=== PATIENT | male | born 1985 | race Caucasian/White ===

== ENCOUNTER 2020-01-17 09:48 | Emergency (ER) | payer OTHER ==
[2020-01-17] MEDS ORDERED: Sodium Chloride 0.9% 1000 ML 1,000 ML IV SCH (10:00)
[2020-01-17 10:15] LABS: Lactic Acid 3.4 (0.4-2.0); VBG CARBOXYHEMOGLOBIN 4.7 % T HGB (0.0-6.9); VBG HCO3- 27.1 meq/L (22-28); VBG HEMOGLOBIN 7.6; VBG O2 SATURATION 63.9 (95-100); VBG POTASSIUM 3.6 (3.5-5.1); VBG pH 7.45 (7.32-7.42)
[2020-01-17] MEDS ORDERED: Sodium Chloride 0.9% 1000 ML 2,000 ML ONE (10:19)
--- NOTE | 2020-01-17 10:28 | XRAY ---
Indication: Found unresponsive. History of squamous cell carcinoma. Comparison: None Portable chest demonstrates multiple monitoring leads and right Port-A-Cath. Lungs hyperinflated with multiple metastatic nodules, greatest right lower lobe. No consolidation/large effusion. Heart is not enlarged. Bony thorax intact. Impression: Metastatic nodules.
[2020-01-17 10:29] LABS: Hematocrit 22.9 % (42-50); Hemoglobin 7.6 gm/dl (12.5-18.0); INR 2.37 (0.8-3.0); Mean Cell Volume 95.8 fl (78-100); Mean Corpuscular Hemoglobin 31.8 pg (26-32); Mean Corpuscular Hgb Concent. 33.2 g/dl (32-36); Mean Platelet Volume 10.7 fl (7.5-11.0); PROTIME 27.2 SECONDS (8.83-12.87); Platelet Count 236 K/mm3 (150-450); Red Blood Count 2.39 M/mm3 (4.1-5.6); Red Cell Distribution Width 15.9 % (11.5-14.0)
[2020-01-17 10:44] LABS: White Blood Count 0.1 K/mm3 (4.0-10.5)
[2020-01-17 10:47] LABS: ALBUMIN 2.3 g/dL (3.5-5.0); ALKALINE PHOSPHATASE 198 U/L (38-126); AMYLASE 56 U/L (30-110); ANION GAP 11.5 MEQ/L (5-15); BLOOD UREA NITROGEN 67 mg/dL (9-20); CHLORIDE 98 mmol/L (98-107); CK-Creatinine Phosphokinase 139 U/L (55-170); Calcium 7.5 mg/dL (8.4-10.2); Carbon Dioxide 27 mmol/L (22-30); LIPASE 41 U/L (23-300); MAGNESIUM 2.2 mg/dL (1.6-2.3); Potassium 3.6 mmol/L (3.5-5.1); SGOT/AST 63 U/L (17-59); SGPT/ALT 177 U/L (0-50); SODIUM 133 mmol/L (137-145)
[2020-01-17 10:48] LABS: ETHYL ALCOHOL < 10 mg/dL (0-10); Glucose 34 mg/dL (74-106); TROPONIN < 0.012 ng/mL (0.000-0.034)
[2020-01-17] MEDS ORDERED: D50W 50 ml Abboject IV ONE ×2 (10:49→10:53)
[2020-01-17 10:58] VITALS: O2SAT 87
--- NOTE | 2020-01-17 10:58 | XRAY ---
Indication: Acute mental status change. History mouth and throat cancer. Multiple contiguous axial images obtained through the head without contrast. Comparison: None Ventriculosulcal pattern appears symmetric. No acute intracranial hemorrhage, abnormal extra-axial fluid collection, or mass effect. Fourth ventricle is midline without hydrocephalus. Bony calvarium intact. Visualized paranasal sinuses and mastoid air cells are clear. Impression: Negative CT head without contrast exam. MRI with contrast exam may yield further information regarding metastasis.
[2020-01-17] MEDS ORDERED: Dextrose 5%-NS IV Solution 1000 ML 1,000 ML IV SCH (11:00)
--- NOTE | 2020-01-17 11:14 | ERPHSYRPT ---
- History of Present Illness Time Seen by Provider: 01/17/20 09:55 Patient Subjective Stated Complaint: unresponsive Triage Nursing Assessment: Patient brought into ED via EMS and transferred to bed with assist of 3. Patient able to open eyes, but mumbles words due to dx of mouth and tongue cancer. Patient was found unresponsive in his cell around 0845 with pupils fixed. Accu check read low per [facility] Nurse. Patient was being transferred per [facility] to [facility] and diverted to [facility] ER due to of 60/30. Patient's skin cool, dusky and mottled. Patient able to open eyes and look around. Patient's lungs clear a/p adrian. No edema noted. Heart tones audible. Port accessed to right upper chest per [facility] Nursing staff. BS upon arrival 84. 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 He was found unresponsive with a blood sugar of 25. Staff from the custodial reports that he has a PEG tube for feeding Jevity which she does not take he was given D50 brought his blood sugar up into the 80s ambulance was called they administered further D50 during his transfer he dropped his blood pressure into the 60s and they diverted to [place] ER. We have hydrated we have repeated his D50 and we started him on 5W in addition to his other fluids at 200 an hour. Full abnormalities including multiple mats in the chest CT scan of the head is negative he is anemic he is leukopenic both metabolic abnormalities. Timing/Duration: today Allergies/Adverse Reactions: No Known Drug Allergies Allergy (Unverified 01/17/20 10:29) Home Medications: Bupropion HCl [Wellbutrin Sr] 1 tab PO BID 01/17/20 [History] Lactose-Reduced Food [Boost] 1 bottle PEG TID 01/17/20 [History] Lactose-Reduced Food/Fiber [Jevity 1.5 Akil Liquid] 1 bottle PEG TID 01/17/20 [ History] Morphine Sulfate 1 tab PO Q6H PRN PRN 01/17/20 [History] Morphine Sulfate Cr 30 mg [Ms Contin 30 mg] 1 tab PO BID 01/17/20 [History ] Morphine Sulfate Cr 60 mg [Ms Contin 60 mg] 1 tab PO BID 01/17/20 [History ] Prochlorperazine Maleate [Compazine] 1 tablet PO TIDPRN 01/17/20 [History] Hx Tetanus, Diphtheria Vaccination/Date Given: (unknown) Hx Influenza Vaccination/Date Given: (unknown) Hx Pneumococcal Vaccination/Date Given: (unknown) Immunizations Up to Date: (unknown) Travel Risk - International Travel Have you traveled outside of the country in past 3 weeks: No - Coronavirus Screening Are you exhibiting any of the following symptoms?: No Close contact with a COVID-19 positive Pt in past 14-21 Days: No - Review of Systems All Other Systems: Unable due to condition - Past Medical History Pertinent Past Medical History: Yes Neurological History: No Pertinent History ENT History: No Pertinent History Cardiac History: No Pertinent History Respiratory History: No Pertinent History Endocrine Medical History: No Pertinent History Musculoskeletal History: No Pertinent History GI Medical History: GERD History: No Pertinent History Psycho-Social History: No Pertinent History Male Reproductive Disorders: No Pertinent History Other Medical History: Squamous cell carcinoma of throat and tongue - Past Surgical History Past Surgical History: Yes Neuro Surgical History: No Pertinent History Cardiac: No Pertinent History Respiratory: No Pertinent History Gastrointestinal: Other Genitourinary: No Pertinent History Musculoskeletal: No Pertinent History Male Surgical History: No Pertinent History Other Surgical History: Peg tube placed - Social History Smoking Status: Unknown if ever smoked Exposure to second hand smoke: (unknown) Drug Use: none Patient Lives Alone: No ([facility]) - Nursing Vital Signs Nursing Vital Signs: Initial Vital Signs Temperature 95.7 F 01/17/20 09:55 Pulse Rate 105 H 01/17/20 09:55 Respiratory Rate 22 01/17/20 09:55 Blood Pressure 84/65 01/17/20 09:55 O2 Sat by Pulse Oximetry 88 L 01/17/20 09:55 Pain Scale Pain Intensity 0 - Physical Exam General Appearance: severe distress, cachetic, thin Eye Exam: PERRL/EOMI, eyes nml inspection Ears, Nose, Throat Exam: normal ENT inspection Neck Exam: normal inspection, non-tender, supple, full range of motion Respiratory Exam: diminished breath sounds, accessory muscle use, crackles/rales , rhonchi Cardiovascular Exam: tachycardia Gastrointestinal/Abdomen Exam: other (PEG tube) Male Genitalia Exam: normal genitalia Back Exam: normal inspection Extremity Exam: other (Obvious muscle wasting) Neurologic Exam: agitation, other (Is and moves all extremities) Skin Exam: warm, dry Lymphatic Exam: adenopathy SpO2 Interpretation: normal SpO2: 87 O2 Delivery: Non-rebreather - Course Nursing assessment & vital signs reviewed: Yes EKG Interpreted by Me: RATE ([id number]), NORMAL AXIS, NORMAL INTERVALS, Non-specific ST Changes Ordered Tests: Active Orders 24 hr Category Date Time Status Accucheck STAT Care 01/17/20 09:50 Active Foreign Exchange Student Coordinator STAT Care 01/17/20 09:51 Active EKG-ER Only STAT Care 01/17/20 09:50 Active IV Insertion STAT Care 01/17/20 09:50 Active IV Insertion-2nd Peripheral STAT Care 01/17/20 09:50 Active Pulse Oximetry (ED) STAT Care 01/17/20 09:50 Active CHEST 1 VIEW (PORTABLE) Stat Exams 01/17/20 09:52 Completed HEAD WITHOUT CONTRAST [CT] Stat Exams 01/17/20 10:04 Completed AMYLASE Routine Lab 01/17/20 10:10 Completed BLOOD CULTURE Stat Lab 01/17/20 09:15 Received CBC W DIFF Stat Lab 01/17/20 10:10 Completed CK-Creatinine Phosphokinase Routine Lab 01/17/20 10:10 Completed CMP Routine Lab 01/17/20 10:10 Completed ETHYL ALCOHOL Routine Lab 01/17/20 10:10 Completed LIPASE Routine Lab 01/17/20 10:10 Completed Lactic Acid Urgent Lab 01/17/20 10:10 Completed MAGNESIUM Routine Lab 01/17/20 10:10 Completed Manual Differential NC Stat Lab 01/17/20 10:10 Completed PROTIME WITH INR Stat Lab 01/17/20 10:10 Completed TROPONIN Q3H Lab 01/17/20 10:10 Completed TROPONIN Q3H Lab 01/17/20 13:00 Ordered TROPONIN Q3H Lab 01/17/20 16:00 Ordered TROPONIN Q3H Lab 01/17/20 19:00 Ordered TROPONIN Q3H Lab 01/17/20 22:00 Ordered UA W/RFX UR CULTURE Stat Lab 01/17/20 10:37 Ordered Urine Triage Profile Stat Lab 01/17/20 10:37 Ordered VENOUS BLOOD GAS Urgent Lab 01/17/20 10:10 Completed Medication Summary Generic Name Dose Route Start Last Admin Trade Name Freq PRN Reason Stop Dose Admin Sodium Chloride 1,000 mls @ 100 mls/hr 01/17/20 10:00 01/17/20 10:19 Sodium Chloride 0.9% 1000 Ml IV 02/16/20 09:59 100 mls/hr .Q10H DONTA Administration Dextrose/Sodium Chloride 1,000 mls @ 200 mls/hr 01/17/20 11:00 Dextrose 5%-Ns Iv Solution 1000 Ml IV 02/16/20 10:59 .Q5H DONTA Discontinued Medications Generic Name Dose Route Start Last Admin Trade Name Young PRN Reason Stop Dose Admin Dextrose Confirm 01/17/20 10:49 D50w 50 Ml Abboject Administered 01/17/20 10:50 Dose 50 ml IV .STK-MED ONE Dextrose 50 ml 01/17/20 10:53 01/17/20 11:00 D50w 50 Ml Abboject IV 01/17/20 10:54 50 ml STAT ONE Administration Lab/Rad Data: Laboratory Result Diagrams 01/17/20 10:10 01/17/20 10:10 Laboratory Results 01/17/20 01/17/20 01/17/20 Range/Units 10:10 10:10 10:10 WBC (4.0-10.5) K/mm3 RBC (4.1-5.6) M/mm3 Hgb (12.5-18.0) gm/dl Hct (42-50) % MCV (78-100) fl MCH (26-32) pg MCHC (32-36) g/dl RDW (11.5-14.0) % Plt Count (150-450) K/mm3 MPV (7.5-11.0) fl PT 27.2 H (8.83-12.87) SECONDS INR 2.37 (0.8-3.0) pO2/FiO2 Ratio 21.0 % VBG pH 7.45 H (7.32-7.42) VBG pCO2 at Pat Temp 39 L (42-55) mm/Hg VBG pO2 at Pat Temp 37 (25-40) mm/Hg VBG HCO3 27.1 (22-28) meq/L VBG O2 Sat ([place]) 63.9 L (95-100) VBG Base Excess 3.0 H (-2.0-2.0) VBG Hemoglobin 7.6 L* VBG Carboxyhemoglobin 4.7 (0.0-6.9) % T HGB POC Potassium 3.6 (3.5-5.1) Sodium 133 L (137-145) mmol/L Potassium 3.6 (3.5-5.1) mmol/L Chloride 98 (98-107) mmol/L Carbon Dioxide 27 (22-30) mmol/L Anion Gap 11.5 (5-15) MEQ/L BUN 67 H (9-20) mg/dL Creatinine 1.10 (0.66-1.25) mg/dL Estimated GFR > 60.0 ML/MIN Glucose 34 L* (74-106) mg/dL Lactic Acid 3.4 H (0.4-2.0) Calcium 7.5 L (8.4-10.2) mg/dL Magnesium 2.2 (1.6-2.3) mg/dL Total Bilirubin 0.40 (0.2-1.3) mg/dL AST 63 H (17-59) U/L ALT 177 H (0-50) U/L Alkaline Phosphatase 198 H (38-126) U/L Creatine Kinase 139 (55-170) U/L Troponin I < 0.012 (0.000-0.034) ng/mL Serum Total Protein 5.0 L (6.3-8.2) g/dL Albumin 2.3 L (3.5-5.0) g/dL Amylase 56 (30-110) U/L Lipase 41 (23-300) U/L Ethyl Alcohol < 10 (0-10) mg/dL 01/17/20 Range/Units 10:10 WBC 0.1 L* (4.0-10.5) K/mm3 RBC 2.39 L (4.1-5.6) M/mm3 Hgb 7.6 L (12.5-18.0) gm/dl Hct 22.9 L (42-50) % MCV 95.8 (78-100) fl MCH 31.8 (26-32) pg MCHC 33.2 (32-36) g/dl RDW 15.9 H (11.5-14.0) % Plt Count 236 (150-450) K/mm3 MPV 10.7 (7.5-11.0) fl PT (8.83-12.87) SECONDS INR (0.8-3.0) pO2/FiO2 Ratio % VBG pH (7.32-7.42) VBG pCO2 at Pat Temp (42-55) mm/Hg VBG pO2 at Pat Temp (25-40) mm/Hg VBG HCO3 (22-28) meq/L VBG O2 Sat ([place]) (95-100) VBG Base Excess (-2.0-2.0) VBG Hemoglobin VBG Carboxyhemoglobin (0.0-6.9) % T HGB POC Potassium (3.5-5.1) Sodium (137-145) mmol/L Potassium (3.5-5.1) mmol/L Chloride (98-107) mmol/L Carbon Dioxide (22-30) mmol/L Anion Gap (5-15) MEQ/L BUN (9-20) mg/dL Creatinine (0.66-1.25) mg/dL Estimated GFR ML/MIN Glucose (74-106) mg/dL Lactic Acid (0.4-2.0) Calcium (8.4-10.2) mg/dL Magnesium (1.6-2.3) mg/dL Total Bilirubin (0.2-1.3) mg/dL AST (17-59) U/L ALT (0-50) U/L Alkaline Phosphatase (38-126) U/L Creatine Kinase (55-170) U/L Troponin I (0.000-0.034) ng/mL Serum Total Protein (6.3-8.2) g/dL Albumin (3.5-5.0) g/dL Amylase (30-110) U/L Lipase (23-300) U/L Ethyl Alcohol (0-10) mg/dL - Progress Progress: unchanged - Departure Departure Disposition: Transfer (Will try and check for to [facility] Dr. Goldman the ER doctor accepting) Clinical Impression: Hypoglycemia, Metastatic squamous cell carcinoma to tongue, Leukopenia, Anemia Condition: Critical Critical Care Time: Yes Critical Care Time(excluding separately billable procedures): Critical 75-104 mins
[2020-01-17 11:16] VITALS: BP 91/74; PULSE 101
[2020-01-17 11:25] LABS: Appearance SLIGHTLY CLOUDY (CLEAR); Bilirubin NEGATIVE (NEGATIVE); Blood NEGATIVE Ery/ul (0-5); Glucose NEGATIVE (NEGATIVE); Ketones NEGATIVE (NEGATIVE); Leukocyte Esterase NEGATIVE (NEGATIVE); Mucus SLIGHT /HPF (NEGATIVE); Nitrite NEGATIVE (NEGATIVE); Protein,Urine Dip NEGATIVE (Negative); RBC 0-2 /HPF (0-2); Specific Gravity 1.015 (1.005-1.025); Urobilinogen NEGATIVE mg/dL (0-1)
[2020-01-17 11:26] LABS: Amphetamine,Urine NEGATIVE (NEGATIVE); Barbiturate,Urine NEGATIVE (NEGATIVE); Benzodiazepine,Urine NEGATIVE (NEGATIVE); Cocaine,Urine NEGATIVE (NEGATIVE); Methadone,Urine NEGATIVE (NEGATIVE); Opiate,Urine POSITIVE (NEGATIVE); PCP,Urine NEGATIVE (NEGATIVE); THC,Urine NEGATIVE (NEGATIVE)
[2020-01-17 11:29] LABS: Bacteria NONE SEEN /HPF (NEGATIVE)
[2020-01-17] MEDS ORDERED: Dextrose 5% -0.45 NaCl 1000 ML 0 ML IV ONE (11:44)
[2020-01-17] MEDS ORDERED: Dextrose 5%-NS IV Solution 1000 ML 1,000 ML IV ONE (11:45)
[2020-01-17] MEDS ORDERED: Sodium Chloride 0.9% 1000 ML 1,000 ML ONE (11:48)
[2020-01-17] MEDS ORDERED: Sodium Chloride 0.9% 1000 ML 1,000 ML IV STA (11:52)
[2020-01-17 12:22] LABS: BAND 8 % (0.0-2.0); Lymphocytes 16 % (24-44); Monocyte 16 % (0.0-12.0); Neutrophils 60 % (36.-66.); Platelet Estimate NORMAL (NORMAL); Total Cells Counted 100
[2020-01-17 12:23] LABS: ANISOCYTOSIS 1+; Hypochromia 1+; Polychromasia 1+
== END 2020-01-17 11:55 | disposition short-term general hospital (02) ==
LOC: ED 09:48
DX: E16.2 Hypoglycemia, unspecified (principal); C14.0 Malignant neoplasm of pharynx, unspecified; C79.89 Secondary malignant neoplasm of other specified sites
CPT/HCPCS: 36000; 36415; 70450; 71045; 80053; 80307; 81001; 82150; 82550; 82805; 82962; 83605; 83690; 83735; 84146; 84484; 85025; 85610; 87040; 93005; 93041; 94760; 96360; 96361; 96365; 96374; 99285; 99291; 99292; G0480